=== PATIENT | male | born 1940 | race Caucasian/White ===

== ENCOUNTER 2019-01-08 10:50 | Emergency (ER) | payer MEDICARE, OTHER ==
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
[2019-01-08 12:04] LABS: ABS Basophils 0.1 10^3/ul (0-0.2); ABS Eosinophils 0.1 10^3/ul (0-0.6); ABS Lymphocytes 0.8 10^3/ul (1.0-4.8); ABS Monocytes 0.9 10^3/ul (0-0.8); ABS Neutrophils 8.7 10^3/ul (1.5-7.7); Eosinophil % 0.9 %; Hematocrit 47 % (42-52); Lymphocyte % 7.2 %; Mean Corpuscular HGB Conc 34 g/dL (31-36); Mean Corpuscular Hemoglobin 31 pg (27-31); Mean Corpuscular Volume 91 fL (80-94); Mean Platelet Volume 6.8 fL (7.4-10.4); Platelet Count 324 10^3/uL (150-450); Red Blood Count 5.13 10^6 /uL (4.18-5.48); Red Cell Distribution Width 14 % (10.5-15); White Blood Count 10.5 10^3/uL (3.5-10.8)
[2019-01-08] MEDS ORDERED: Tetan/Diph/Pertus SYR(Tdap)* 0.5 ML SYR(BOOSTRIX) use SYR IM ONE (12:12)
[2019-01-08 12:29] LABS: Albumin 4.3 g/dL (3.2-5.2); Albumin/Globulin Ratio 1.3 (1-3); Calcium 9.6 mg/dL (8.6-10.3); EGFR African American 80.5 (>60); EGFR Non-African American 66.5 (>60); Globulin 3.2 g/dL (2-4); Potassium 4.1 mmol/L (3.5-5.0); Total Bilirubin 0.6 mg/dL (0.2-1.0); Total Protein 7.5 g/dL (6.4-8.9)
[2019-01-08 12:46] VITALS: BP 143/91
== END 2019-01-08 12:45 | disposition home or self-care (01) ==
LOC: ED 10:50
DX: S00.93XA Contusion of unspecified part of head, initial encounter (principal); S05.90XA Unspecified injury of unspecified eye and orbit, initial encounter; H53.9 Unspecified visual disturbance; J44.9 Chronic obstructive pulmonary disease, unspecified; V53.5XXA Driver of pick-up truck or van injured in collision with car, pick-up truck or van in traffic accident, initial encounter; Y92.9 Unspecified place or not applicable; Z23 Encounter for immunization; K21.9 Gastro-esophageal reflux disease without esophagitis; M50.31 Other cervical disc degeneration, high cervical region; M50.322 Other cervical disc degeneration at C5-C6 level
CPT/HCPCS: 36415; 70450; 70486; 72125; 80053; 85025; 90471; 99282

== ENCOUNTER 2019-10-07 07:00 | Emergency (ER) | payer MEDICARE ==
--- NOTE | 2019-10-07 07:25 | ED ---
HPI Chest Pain - HPI Summary HPI Summary: Patient is an 79 y/o M presenting to the ED for a chief complaint of non- radiating midsternal chest pain that began on the morning of 10/07/19 at approximately 03:00. Patient is present with his . Patient reports productive cough with yellow phlegm for the last 10 days and nasal congestion. He states the cough is getting better, but feels SOB during coughing episodes. His has a similar cough. Patient denies fever, diaphoresis, nausea, abdominal pain, or neck pain. The chest pain is described as a tightness sensation across the anterior chest. The chest pain is still present. The chest pain worsens slightly with deep breaths and movement. No analgesia taken. No trauma or injury to the chest is noted. On 10:00 on 10/07/19, patient is due to have a prostate procedure with Dr. Geoffrey Huggins for prostate cancer. Patient last took antibiotics prescribed for the procedure on 10/06/19 last evening. Patient did not take his dose this morning. Typically, patient takes Xarelto for atrial fibrillation, but stopped taking this medication 3 days ago in preparation for the procedure. He received an influenza and pneumonia vaccination this season. Patient admits daily alcohol use, but denies tobacco use. Last cardiac stress test was 1 years ago with unremarkable findings. 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 Patients medication reviewed this visit. - History of Current Complaint Chief Complaint: EDChestPainROMI Time Seen by Provider: 10/07/19 07:18 Hx Obtained From: Patient Onset/Duration: Atraumatic, Still Present Timing: Constant Initial Severity: Moderate Current Severity: Moderate Pain Intensity: 4 Pain Scale Used: 0-10 Numeric Chest Pain Location: Mid Sternal Chest Pain Radiates: No Character: Tightness Aggravating Factor(s): Deep Breaths Alleviating Factor(s): Nothing Associated Signs and Symptoms: Positive: Chest Pain - Midsternal, Shortness of Breath, Cough - Productive with yellow phlegm, Productive Cough - With yellow phlegm. Negative: Fever, Diaphoresis, Nausea, Abdominal Pain, Other: - Negative neck pain - Allergy/Home Medications Allergies/Adverse Reactions: Allergies Allergy/AdvReac Type Severity Reaction Status Date / Time No Known Allergies Allergy Verified 09/09/19 12:12 Home Medications: Home Medications Calcium Carbonate [Calcium] 500 mg PO DAILY 10/07/19 [History Confirmed 10/07/19 ] Cholecalciferol TAB* [Vitamin D TAB*] 1,000 unit PO DAILY 10/07/19 [History Confirmed 10/07/19] PMH/Surg Hx/FS Hx/Imm Hx Previously Healthy: Yes Endocrine/Hematology History: Reports: Hx Anticoagulant Therapy Denies: Hx Diabetes, Hx Thyroid Disease Cardiovascular History: Reports: Hx Atrial Fibrillation Denies: Hx Congestive Heart Failure, Hx Hypercholesterolemia, Hx Hypertension , Hx Myocardial Infarction, Hx Pacemaker/ICD Respiratory History: Reports: Hx Chronic Obstructive Pulmonary Disease (COPD), Other Respiratory Problems/Disorders - 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 hernia repair april 2012 Infectious Disease History: No Infectious Disease History: Denies: Hx Hepatitis, Hx Human Immunodeficiency Virus (HIV), Traveled Outside the [place] in Last 30 Days - Family History Known Family History: Negative: Diabetes - Social History Occupation: Retired Lives: With Family Alcohol Use: Daily Hx Substance Use: No Substance Use Type: Reports: None Hx Tobacco Use: No Smoking Status (MU): Never Smoked Tobacco Have You Smoked in the Last Year: No Review of Systems Negative: Fever, Skin Diaphoresis Positive: Other - Positive nasal congestion Positive: Chest Pain - Midsternal Positive: Shortness Of Breath, Cough - Productive with yellow phlegm Negative: Abdominal Pain, Nausea Negative: Myalgia - Neck pain All Other Systems Reviewed And Are Negative: Yes Physical Exam - Summary Physical Exam Summary: Vital Signs Reviewed: Yes A+Ox3, no distress, speaking full, easy sentences Eyes: Conjunctiva Clear, DIANE. EOM intact and full ENT: Hearing grossly normal TM x 2 clear, turbinates inflammed and boggy, mmoist, uvula midline, no exudate, no erythema Neck: Positive: Supple Respiratory: Positive: No respiratory distress, No accessory muscle use, speaking full easy sentences, mild scattered expiratory wheeze + tenderness and reproducible pain with palpation anterior chest well at sternal border Cardiovascular: irregular rate nl s1, s2 no m/r CBT <2 sec abd soft + BS nt/nd no guarding, no distension Musculoskeletal Exam: ZABALA x 4 without difficulty Strength Intact, ROM Intact Neurological: Positive: Alert, + sensation throughout Psychological: Positive: Normal Response To examiner Skin: Positive: no rash, no ecchymosis Triage Information Reviewed: Yes Vital Signs On Initial Exam: Initial Vitals Temp Pulse Resp BP Pulse Ox 97.7 F 120 18 134/92 96 10/07/19 07:13 10/07/19 07:13 10/07/19 07:13 10/07/19 07:13 10/07/19 07:13 Vital Signs Reviewed: Yes Procedures - Sedation Patient Received Moderate/Deep Sedation with Procedure: No Diagnostics - Vital Signs Vital Signs Temp Pulse Resp BP Pulse Ox 10/07/19 07:13 97.7 F 120 18 134/92 96 - Laboratory Result Diagrams: 10/07/19 07:47 10/07/19 07:47 Lab Statement: Any lab studies that have been ordered have been reviewed, and results considered in the medical decision making process. - Radiology Chest X-ray Radiology Interpretation Completed By: Radiologist Summary of Radiographic Findings: Chest X-ray IMPRESSION: STABLE CALCIFIED PLEURAL PLAQUES. NO ACTIVE CARDIOPULMONARY DISEASE. Reviewed by Dr. Casillas. - CT Chest/Thorax CTA CT Interpretation Completed By: Radiologist Summary of CT Findings: Chest/Thorax CTA IMPRESSION: 1. NO PULMONARY ARTERIAL FILLING DEFECT TO SUGGEST PULMONARY EMBOLISM. 2. STABLE PLEURAL AND PERICARDIAL CALCIFICATION. 3. EMPHYSEMA. Reviewed by Dr. Casillas. - EKG 07:06 Cardiac Rate: Other Rate - 110 BPM EKG Rhythm: Atrial Fibrillation ST Segment: Normal Ectopy: None Summary of EKG Findings: EKG at 07:06 shows atrial fibrillation with 110 BPM, slight ST depressions in V3-V6. Reviewed and interpreted by Dr. Casillas. Re-Evaluation - Re-Evaluation First Eval Re-Evaluation Time: 08:53 Change: Improved Comment: At 08:53, patients lungs are improved, wheezing is resolved. Patient states the pain is still present, but improved. I will order a CTA to look for a PE and a repeat troponin at 09:30. I will order breakfast. Patients son is present. Second Eval Re-Evaluation Time: 09:00 Change: Unchanged Comment: At 09:00, I updated the patient on imaging results. Third Eval Re-Evaluation Time: 09:49 Change: Improved Comment: At 09:49, patient is feeling better. I will wait for a second troponin before discharge. Fourth Eval Re-Evaluation Time: 10:44 Change: Unchanged Comment: At 10:44, there are no interactions with tiarra Rendon per Jorge. Chest Pain Course/Dx - Course Course Of Treatment: Patient presents to urgent care stating he will go to 3:00 in the morning with change pain across his anterior chest. Patient states pain is worse with coughing and movement. Patient denies feeling short of breath. Patient with a recent head cold that settled his chest. Patient without any other symptoms. Patient did not take anything for the pain. Patient with a history of A. fib and is typically on Zaroxolyn but stopped it because he scheduled to have a urology procedure this morning. Patient again by first thing preparation for this. Patient does not smoke patient. Patient has COPD but on no meds. On exam vital signs show slightly elevated heart rate. Patient well-appearing with good sats. Patient does have diffuse expiratory wheezes and has reproducible discomfort along the anterior chest pain with direct palpation. No crepitus. We'll do labs including influenza. EKG reviewed non-concerning A. fib. Will check x-ray, give Xopenex, labs including influenza and troponin. The patient Tylenol for pain. Patient spells comfortable with the plan. Patient gave permission to contact Dr. Anderson's office and let the staff know he is undereval in the ED - Diagnoses Provider Diagnoses: Chest wall pain, Bronchitis - Provider Notifications Discussed Care Of Patient With: Geoffrey Huggins - At 08:55, Dr. Geoffrey Huggins was notified that the patient is in the ED. Time Discussed With Above Provider: 08:55 Discharge ED - Sign-Out/Discharge Documenting (check all that apply): Patient Departure - Discharge - Discharge Plan Condition: Stable Disposition: HOME Prescriptions: Albuterol HFA INHALER* [Ventolin HFA Inhaler*] 2 puff INH Q4H PRN #1 mdi PRN Reason: wheeze DOXYcycline CAP(*) [DOXYcycline 100MG CAP(*)] 100 mg PO BID #14 cap Inhaler, Assist Devices [Aerochamber Mv] 1 each PO Q4HR #1 spacer Patient Education Materials: Acute Bronchitis (ED), Chest Wall Pain (ED) Referrals: Marisa Eli PA [Primary Care Provider] - Additional Instructions: The doctor that evaluated you today thinks that the pain in your chest is related to muscles in your chest from coughing. Your imaging studies today do not show any blood clots in your lungs, problems related to your pleural effusion, or pneumonia. As discussed, your white blood cell count was slightly elevated today. As you recently had a head cold that settled in your chest, the doctor thinks you should take a course of antibiotics because your symptoms have been lingering for 10 days. The doctor evaluated you recommends the following: - Take antibiotics exactly as prescribed until gone - okay to take Tylenol every 6 hours as needed for pain - Okay to apply warm heat to your chest wall for discomfort - Use your albuterol puffer - 2 puffs every 4 hours for the next 2 days - then as needed - Stay well hydrated - avoid excess caffeine and all alcohol - eat regular, healthy meals - humidify the air in the room where you sleep - boil water, run a hot steam shower, vaporizer, cups of water by heat register - okay to take over the counter decongestant and cough medication - These infections are spread by secretions - do NOT share eating or drinking utensils - clean items you share with other people such as cell phones, computer mouse, TV remote, computer tablets,etc.. Once you have been antibiotics for 2 days, change your toothbrush and your pillowcase. -Contact your doctor today to arrange a follow-up appointment this week. Call your doctor, return here or go to the emergency department with any questions or concerns Contact Dr. Huggins's office to discuss your prostate procedure and your to discuss your anticoagulation medication - Billing Disposition and Condition Condition: STABLE Disposition: Home - Attestation Statements Document Initiated by Scribe: Yes Documenting Scribe: Izzy Mccall Provider For Whom Scribe is Documenting (Include Credential): Brandee Casillas MD Scribe Attestation: I, Izzy Mccall, scribed for Brandee Casillas MD on 10/07/19 at 1046. Scribe Documentation Reviewed: Yes Provider Attestation: The documentation as recorded by the scribe, Izzy Mccall accurately reflects the service I personally performed and the decisions made by me, Brandee Casillas MD Status of Scribe Document: Viewed
[2019-10-07] MEDS ORDERED: Acetaminophen TAB* 325 MG PO ONE (07:37)
[2019-10-07] MEDS ORDERED: Levalbuterol 1.25MG/0.5ML NEB INH ONE (07:40)
[2019-10-07] MEDS ORDERED: NS 0.9% 1000 ML** 1,000 ML IV ONE (07:41)
[2019-10-07 08:05] LABS: ABS Lymphocytes 0.8 10^3/ul (1.0-4.8); Eosinophil % 0.1 %; Hematocrit 48 % (42-52); Hemoglobin 16.9 g/dL (14.0-18.0); Lymphocyte % 5.2 %; Mean Corpuscular HGB Conc 36 g/dL (31-36); Mean Corpuscular Hemoglobin 33 pg (27-31); Mean Corpuscular Volume 93 fL (80-94); Mean Platelet Volume 6.8 fL (7.4-10.4); Platelet Count 471 10^3/uL (150-450); Red Blood Count 5.13 10^6 /uL (4.18-5.48); Red Cell Distribution Width 14 % (10-15)
[2019-10-07 08:10] LABS: INR 1.11 (0.82-1.09)
[2019-10-07 08:11] LABS: Calcium 8.9 mg/dL (8.6-10.3); Magnesium 1.8 mg/dL (1.9-2.7); Potassium 3.6 mmol/L (3.5-5.0); Total Bilirubin 0.8 mg/dL (0.2-1.0)
[2019-10-07 08:17] LABS: Albumin/Globulin Ratio 1.1 (1-3); EGFR African American 86.8 (>60); EGFR Non-African American 71.7 (>60); Globulin 3.5 g/dL (2-4); Total Protein 7.5 g/dL (6.4-8.9)
[2019-10-07 08:19] LABS: Troponin I 0.01 ng/mL (<0.03)
[2019-10-07 08:35] LABS: Influenza A Molecular Negative (Negative); Influenza B Molecular Negative (Negative)
[2019-10-07] MEDS ORDERED: Iohexol 350* (CONTRAST) 500 ML MDV IV ONE (09:00)
[2019-10-07 09:37] LABS: Urine Appearance Clear; Urine Bilirubin Negative (Negative); Urine Blood 2+ (Negative); Urine Color Yellow; Urine Glucose Negative (Negative); Urine Ketones Negative (Negative); Urine Nitrite Negative (Negative); Urine Protein Negative (Negative); Urine Specific Gravity 1.015 (1.010-1.030); Urine Urobilinogen Negative (Negative)
[2019-10-07 09:47] LABS: Urine Bacteria Absent (Absent); Urine Red Blood Cell 2+(6-10/hpf) (Absent); Urine White Blood Cell Trace(0-5/hpf) (Absent)
[2019-10-07 10:59] VITALS: BP 122/78
== END 2019-10-07 10:57 | disposition home or self-care (01) ==
LOC: ED 07:00
DX: J40 Bronchitis, not specified as acute or chronic (principal); I48.91 Unspecified atrial fibrillation; J44.9 Chronic obstructive pulmonary disease, unspecified; C61 Malignant neoplasm of prostate; Z79.01 Long term (current) use of anticoagulants
CPT/HCPCS: 36415; 71046; 71275; 80053; 81003; 81015; 83605; 83735; 84484; 85025; 85379; 85610; 87040; 87086; 93005; 96360; 96361; 99283; A9270-GY; Q9967

== ENCOUNTER 2020-04-06 21:53 | Inpatient (IN) ==
[2020-04-06] MEDS ORDERED: Magnesium Sulfate 2 gm BAG 2 GM/50 ML BAG IVPB ONE (22:08)
[2020-04-06] MEDS ORDERED: NS 0.9% 1000 ml BAG 1,000 ML IV ONE (22:08)
[2020-04-06 23:18] LABS: ABS Lymphocytes 0.4 10^3/ul (1.0-4.8); ABS Monocytes 0.4 10^3/ul (0-0.8); ABS Neutrophils 4.6 10^3/ul (1.5-7.7); Eosinophil % 0.1 %; Hematocrit 28 % (42-52); Hemoglobin 9.8 g/dL (14.0-18.0); Lymphocyte % 7.3 %; Mean Corpuscular HGB Conc 35 g/dL (31-36); Mean Corpuscular Hemoglobin 32 pg (27-31); Mean Corpuscular Volume 91 fL (80-94); Mean Platelet Volume 6.4 fL (7.4-10.4); Nucleated Red Blood Cells % 0.1; Platelet Count 518 10^3/uL (150-450); Red Blood Count 3.04 10^6 /uL (4.18-5.48); Red Cell Distribution Width 15 % (10-15); White Blood Count 5.4 10^3/uL (3.5-10.8)
[2020-04-06 23:37] LABS: Albumin 1.9 g/dL (3.2-5.2); Albumin/Globulin Ratio 0.7 (1-3); BUN/Creatinine Ratio 21.3 (8-20); Calcium 7.3 mg/dL (8.6-10.3); EGFR Non-African American 81.8 (>60); Globulin 2.9 g/dL (2-4); Magnesium 1.6 mg/dL (1.9-2.7); Potassium 3.1 mmol/L (3.5-5.0); Total Bilirubin 0.5 mg/dL (0.2-1.0); Total Protein 4.8 g/dL (6.4-8.9)
[2020-04-06 23:39] LABS: Troponin I 0.02 ng/mL (<0.03)
[2020-04-07 00:19] LABS: TSH Ultra Thyroid Stim Horm 1.26 mcIU/mL (0.34-5.60)
[2020-04-07] MEDS ORDERED: Iohexol 300 (CONTRAST) 10 ML SDV IV ONE (00:48)
[2020-04-07 03:07] LABS: Urine Appearance Clear; Urine Bilirubin Negative (Negative); Urine Blood Negative (Negative); Urine Color Straw; Urine Glucose Negative (Negative); Urine Ketones Negative (Negative); Urine Nitrite Negative (Negative); Urine Protein Negative (Negative); Urine Specific Gravity 1.014 (1.010-1.030); Urine Urobilinogen Negative (Negative)
[2020-04-07] MEDS ORDERED: NS 0.9% 1000 ml BAG 1,000 ML IV ONE ×2 (04:05→10:01)
[2020-04-07] MEDS ORDERED: Ondansetron 4 mg VIAL 2 MG/ML 2 ml VIAL IV PRN (05:01)
[2020-04-07] MEDS ORDERED: NS 0.9% 1000 ml BAG 1,000 ML IV SCH ×2 (05:15)
[2020-04-07] MEDS ORDERED: Thiamine 100 MG/ML 2 ml VIAL 100 MG, Folic Acid 1 MG, Multiple Vitamin IV ADULT 10 ML i... IV ONE (05:30)
[2020-04-07] MEDS ORDERED: Diphenoxylat/Atrop 2.5-0.025mg TAB PO PRN (05:32)
[2020-04-07] MEDS: KCL 20 MEQ/100 ML IVPREMIX 20 MEQ/100 ML BAG IV SCH ×3 (07:33→15:17)
[2020-04-07] MEDS ORDERED: Albuterol/Ipratropium NEB.SOL (2.5/0.5 MG) 3 ML NEB.SOLN INH PRN (09:05)
[2020-04-07] MEDS: Mometasone/Formoter 100/5 MDI INH SCH ×2 (10:29→19:31)
[2020-04-07] MEDS ORDERED: NS 0.9% w/ 20 Meq KCL 1000 ml 1,000 ML IV SCH (11:00)
[2020-04-07 12:42] LABS: BUN/Creatinine Ratio 17.4 (8-20); Blood Urea Nitrogen 12 mg/dL (6-24); CO2 Carbon Dioxide 27 mmol/L (22-32); Chloride 105 mmol/L (101-111); EGFR African American 132.8 (>60); EGFR Non-African American 109.8 (>60); Glucose 106 mg/dL (70-100); Magnesium 1.6 mg/dL (1.9-2.7); Sodium 138 mmol/L (135-145)
[2020-04-07 12:50] LABS: Anion Gap 6 mmol/L (2-11); Calcium 6.4 mg/dL (8.6-10.3); Potassium 2.7 mmol/L (3.5-5.0)
[2020-04-07] MEDS ORDERED: KCL 20 MEQ/100 ML IVPREMIX 20 MEQ/100 ML BAG IV ONE (13:00)
[2020-04-07] MEDS ORDERED: Magnesium Sulfate IV 3 GM in NS 0.9% 100 ml BAG 100 ML IVPB ONE (13:00)
[2020-04-07] MEDS: Potassium Chloride LIQUID 20 MEQ/15 ML LIQUID PO SCH ×2 (13:07→16:15)
[2020-04-07] MEDS: Nystatin SUSPENSION 100,000 UNITS/ML UDC PO SCH ×2 (16:15→20:12)
[2020-04-07 18:41] LABS: C Reactive Protein 107.04 mg/L (<8.01)
[2020-04-07 21:49] LABS: Total Iron Binding Capacity 105 mcg/dL (250-450); Transferrin < 75 mg/dL (203-362)
[2020-04-07 21:53] LABS: % Iron Saturation 19 % (15-55); Iron < 20 ug/dL (50-212); Unsaturated Iron Binding < 90 ug/dL
[2020-04-07 22:11] LABS: Ferritin 761.1 ng/mL (24-336)
[2020-04-07 22:14] LABS: Folate 13.81 ng/mL (>3.99)
[2020-04-07 22:15] LABS: Vitamin B12 > 1450 pg/mL (180-914)
[2020-04-08 05:35] LABS: ABS Lymphocytes 0.4 10^3/ul (1.0-4.8); ABS Monocytes 0.3 10^3/ul (0-0.8); ABS Neutrophils 4.8 10^3/ul (1.5-7.7); Eosinophil % 0.4 %; Hematocrit 30 % (42-52); Hemoglobin 10.2 g/dL (14.0-18.0); Mean Corpuscular HGB Conc 35 g/dL (31-36); Mean Corpuscular Hemoglobin 32 pg (27-31); Mean Corpuscular Volume 92 fL (80-94); Mean Platelet Volume 6.7 fL (7.4-10.4); Nucleated Red Blood Cells % 0.1; Platelet Count 486 10^3/uL (150-450); Red Blood Count 3.21 10^6 /uL (4.18-5.48); Red Cell Distribution Width 15 % (10-15); White Blood Count 5.6 10^3/uL (3.5-10.8)
[2020-04-08 05:53] LABS: Calcium 6.5 mg/dL (8.6-10.3); Magnesium 1.9 mg/dL (1.9-2.7); Potassium 3.3 mmol/L (3.5-5.0)
[2020-04-08 05:59] LABS: BUN/Creatinine Ratio 11.9 (8-20); EGFR African American 137.4 (>60); EGFR Non-African American 113.6 (>60)
[2020-04-08] MEDS: Mometasone/Formoter 100/5 MDI INH SCH ×2 (08:32→20:49)
[2020-04-08] MEDS: Nystatin SUSPENSION 100,000 UNITS/ML UDC PO SCH ×4 (09:33→20:15)
[2020-04-08] MEDS: KCL 20 MEQ/100 ML IVPREMIX 20 MEQ/100 ML BAG IV SCH ×2 (10:38→12:31)
[2020-04-08 16:59] LABS: BUN/Creatinine Ratio 11.4 (8-20); Calcium 6.6 mg/dL (8.6-10.3); EGFR African American 130.6 (>60); Magnesium 1.8 mg/dL (1.9-2.7); Potassium 3.7 mmol/L (3.5-5.0)
[2020-04-08] MEDS ORDERED: Magnesium Sulfate 2 gm BAG 2 GM/50 ML BAG IVPB ONE (17:59)
[2020-04-09 06:40] LABS: ABS Lymphocytes 0.5 10^3/ul (1.0-4.8); ABS Monocytes 0.4 10^3/ul (0-0.8); ABS Neutrophils 5.4 10^3/ul (1.5-7.7); Eosinophil % 0.3 %; Hematocrit 28 % (42-52); Hemoglobin 9.8 g/dL (14.0-18.0); Lymphocyte % 7.5 %; Mean Corpuscular HGB Conc 35 g/dL (31-36); Mean Corpuscular Hemoglobin 32 pg (27-31); Mean Corpuscular Volume 92 fL (80-94); Nucleated Red Blood Cells % 0.1; Platelet Count 324 10^3/uL (150-450); Red Blood Count 3.06 10^6 /uL (4.18-5.48); Red Cell Distribution Width 15 % (10-15); White Blood Count 6.2 10^3/uL (3.5-10.8)
[2020-04-09 06:48] LABS: BUN/Creatinine Ratio 11.9 (8-20); EGFR African American 137.4 (>60); EGFR Non-African American 113.6 (>60); Magnesium 1.9 mg/dL (1.9-2.7); Potassium 3.1 mmol/L (3.5-5.0)
[2020-04-09 06:58] LABS: Calcium 6.4 mg/dL (8.6-10.3)
[2020-04-09] MEDS ORDERED: Calcium Gluconate 2 GM in NS 0.9% 100 ml BAG 100 ML IV ONE (08:00)
[2020-04-09] MEDS: Nystatin SUSPENSION 100,000 UNITS/ML UDC PO SCH ×4 (08:18→20:52)
[2020-04-09] MEDS: KCL 20 MEQ/100 ML IVPREMIX 20 MEQ/100 ML BAG IV SCH ×2 (08:51→14:01)
[2020-04-09 10:39] LABS: Vitamin D Total 25(OH) 7.8 ng/mL (20-50)
[2020-04-09] MEDS: Mometasone/Formoter 100/5 MDI INH SCH ×2 (10:55→20:52)
[2020-04-09] MEDS: Potassium Chlor 20 meq TAB.ER PO SCH ×2 (14:51→16:55)
[2020-04-09 17:20] LABS: BUN/Creatinine Ratio 14.9 (8-20); Calcium 6.6 mg/dL (8.6-10.3); EGFR African American 122.5 (>60); EGFR Non-African American 101.3 (>60); Magnesium 1.8 mg/dL (1.9-2.7); Potassium 3.3 mmol/L (3.5-5.0)
[2020-04-10] MEDS ORDERED: Diphenoxylat/Atrop 2.5-0.025mg TAB PO PRN (06:00)
[2020-04-10 07:03] LABS: ABS Lymphocytes 0.4 10^3/ul (1.0-4.8); ABS Monocytes 0.5 10^3/ul (0-0.8); ABS Neutrophils 4.9 10^3/ul (1.5-7.7); Hematocrit 29 % (42-52); Hemoglobin 10.1 g/dL (14.0-18.0); Lymphocyte % 7.2 %; Mean Corpuscular HGB Conc 35 g/dL (31-36); Mean Corpuscular Hemoglobin 33 pg (27-31); Mean Corpuscular Volume 92 fL (80-94); Mean Platelet Volume 7.1 fL (7.4-10.4); Nucleated Red Blood Cells % 0.1; Platelet Count 419 10^3/uL (150-450); Red Cell Distribution Width 15 % (10-15); White Blood Count 5.8 10^3/uL (3.5-10.8)
[2020-04-10 07:10] LABS: Albumin 1.5 g/dL (3.2-5.2); Albumin/Globulin Ratio 0.6 (1-3); BUN/Creatinine Ratio 16.7 (8-20); Calcium 6.7 mg/dL (8.6-10.3); EGFR African American 126.5 (>60); EGFR Non-African American 104.5 (>60); Globulin 2.7 g/dL (2-4); Magnesium 1.8 mg/dL (1.9-2.7); Potassium 3.7 mmol/L (3.5-5.0); Total Bilirubin 0.4 mg/dL (0.2-1.0); Total Protein 4.2 g/dL (6.4-8.9)
[2020-04-10] MEDS: Mometasone/Formoter 100/5 MDI INH SCH ×2 (07:40→19:57)
[2020-04-10] MEDS ORDERED: Calcium Carb (TUMS) 500 mg CHEW TAB PO SCH (09:00)
[2020-04-10] MEDS: Nystatin SUSPENSION 100,000 UNITS/ML UDC PO SCH ×4 (09:10→20:17)
[2020-04-10] MEDS: Potassium Chloride LIQUID 20 MEQ/15 ML LIQUID PO SCH (09:10)
[2020-04-10] MEDS: Calcium Carb (TUMS) 500 mg CHEW TAB PO SCH ×2 (09:14→20:17)
[2020-04-10] MEDS ORDERED: Magnesium Sulfate IV 1GM/100ML 1 GM/100 ML BAG IV ONE (09:25)
[2020-04-10] MEDS ORDERED: Furosemide 20 mg/2 ml IV VIAL IV SLOW PU ONE (12:52)
[2020-04-11 01:39] LABS: Adenovirus F40/41 Negative (Negative); Astrovirus Negative (Negative); Cryptosporidium species Negative (Negative); Cyclospora cayetanensis Negative (Negative); Entamoeba histolytica Negative (Negative); Enteroaggregative E.coli(EAEC) Negative (Negative); Enteropathogenic Ecoli(EPEC) Positive (Negative); Enterotoxigenic Ecoli(ETEC) Negative (Negative); Norovirus GI/GII Negative (Negative); Plesiomonas shigelloides Negative (Negative); Salmonella species Negative (Negative); Sapovirus Negative (Negative); Shiga toxin producing E. coli Negative (Negative); Shigella/Enteroinvasive E.coli Negative (Negative); Specimen Source STOOL; Vibrio cholerae Negative (Negative); Yersinia species Negative (Negative)
[2020-04-11 06:52] LABS: Calcium 6.7 mg/dL (8.6-10.3); Magnesium 1.7 mg/dL (1.9-2.7); Potassium 3.5 mmol/L (3.5-5.0)
[2020-04-11 06:57] LABS: BUN/Creatinine Ratio 16.7 (8-20); EGFR African American 126.5 (>60); EGFR Non-African American 104.5 (>60)
[2020-04-11] MEDS: Mometasone/Formoter 100/5 MDI INH SCH ×2 (08:31→19:16)
[2020-04-11] MEDS ORDERED: Magnesium Sulfate 2 gm BAG 2 GM/50 ML BAG IVPB ONE (08:49)
[2020-04-11] MEDS: Potassium Chloride LIQUID 20 MEQ/15 ML LIQUID PO SCH (09:15)
[2020-04-11] MEDS: Calcium Carb (TUMS) 500 mg CHEW TAB PO SCH ×2 (09:17→23:22)
[2020-04-11] MEDS: Nystatin SUSPENSION 100,000 UNITS/ML UDC PO SCH ×4 (09:19→23:21)
[2020-04-11] MEDS ORDERED: Potassium Chloride LIQUID 20 MEQ/15 ML LIQUID PO ONE (17:13)
[2020-04-12 05:50] LABS: BUN/Creatinine Ratio 17.3 (8-20); Calcium 6.8 mg/dL (8.6-10.3); EGFR African American 120.6 (>60); EGFR Non-African American 99.7 (>60); Magnesium 1.9 mg/dL (1.9-2.7); Potassium 3.8 mmol/L (3.5-5.0)
[2020-04-12] MEDS: Mometasone/Formoter 100/5 MDI INH SCH ×2 (08:13→19:14)
[2020-04-12 09:02] LABS: Albumin 1.7 g/dL (3.2-5.2); Total Protein 4.4 g/dL (6.4-8.9)
[2020-04-12] MEDS: Nystatin SUSPENSION 100,000 UNITS/ML UDC PO SCH ×4 (09:54→22:07)
[2020-04-12] MEDS: Calcium Carb (TUMS) 500 mg CHEW TAB PO SCH ×2 (09:54→22:08)
[2020-04-12] MEDS: Potassium Chloride LIQUID 20 MEQ/15 ML LIQUID PO SCH (09:54)
[2020-04-12] MEDS ORDERED: Furosemide 40 mg/4 ml IV VIAL IV SLOW PU ONE (12:18)
[2020-04-13 04:45] LABS: CMV DNA DETECT/QT, P Undetected IU/mL (Undetected)
[2020-04-13 07:28] LABS: BUN/Creatinine Ratio 13.7 (8-20); Calcium 6.7 mg/dL (8.6-10.3); EGFR African American 124.5 (>60); EGFR Non-African American 102.9 (>60); Magnesium 1.7 mg/dL (1.9-2.7); Potassium 3.4 mmol/L (3.5-5.0)
[2020-04-13] MEDS: Nystatin SUSPENSION 100,000 UNITS/ML UDC PO SCH ×4 (07:55→21:54)
[2020-04-13] MEDS: Potassium Chloride LIQUID 20 MEQ/15 ML LIQUID PO SCH (07:56)
[2020-04-13] MEDS: Calcium Carb (TUMS) 500 mg CHEW TAB PO SCH ×2 (07:57→21:54)
[2020-04-13] MEDS: Mometasone/Formoter 100/5 MDI INH SCH ×2 (08:40→20:18)
[2020-04-13] MEDS ORDERED: Magnesium Sulfate 2 gm BAG 2 GM/50 ML BAG IVPB ONE (09:21)
[2020-04-13] MEDS ORDERED: Potassium Chloride LIQUID 20 MEQ/15 ML LIQUID PO ONE (13:00)
[2020-04-13 15:52] LABS: BUN/Creatinine Ratio 13.8 (8-20); EGFR Non-African American 92.5 (>60); Magnesium 2.3 mg/dL (1.9-2.7); Potassium 4.8 mmol/L (3.5-5.0)
[2020-04-14 07:43] LABS: ABS Eosinophils 0.1 10^3/ul (0-0.6); ABS Lymphocytes 0.5 10^3/ul (1.0-4.8); ABS Monocytes 0.2 10^3/ul (0-0.8); ABS Neutrophils 3.3 10^3/ul (1.5-7.7); Eosinophil % 3.4 %; Hematocrit 28 % (42-52); Hemoglobin 9.7 g/dL (14.0-18.0); Lymphocyte % 12.6 %; Mean Corpuscular HGB Conc 35 g/dL (31-36); Mean Corpuscular Hemoglobin 32 pg (27-31); Mean Corpuscular Volume 92 fL (80-94); Nucleated Red Blood Cells % 0.1; Platelet Count 460 10^3/uL (150-450); Red Blood Count 3.01 10^6 /uL (4.18-5.48); Red Cell Distribution Width 15 % (10-15); White Blood Count 4.2 10^3/uL (3.5-10.8)
[2020-04-14 08:09] LABS: Calcium 6.9 mg/dL (8.6-10.3); Magnesium 1.9 mg/dL (1.9-2.7); Potassium 3.6 mmol/L (3.5-5.0)
[2020-04-14 08:15] LABS: BUN/Creatinine Ratio 13.8 (8-20); EGFR African American 142.3 (>60); EGFR Non-African American 117.6 (>60)
[2020-04-14] MEDS: Nystatin SUSPENSION 100,000 UNITS/ML UDC PO SCH (08:21)
[2020-04-14] MEDS: Calcium Carb (TUMS) 500 mg CHEW TAB PO SCH (08:21)
[2020-04-14] MEDS: Potassium Chloride LIQUID 20 MEQ/15 ML LIQUID PO SCH (08:22)
[2020-04-14] MEDS: Mometasone/Formoter 100/5 MDI INH SCH (08:24)
[2020-04-14 11:17] VITALS: BP 101/59
== END 2020-04-14 10:30 | DRG 372 ==
LOC: ED 21:53 → MED 04-07 05:01 → MEDTELE 04-08 12:54
PROVIDERS: ADMIT Nurse Practitioner; ATTEND Internal Medicine

== ENCOUNTER 2020-05-17 12:55 | Inpatient (IN) ==
[2020-05-17] MEDS ORDERED: Diltiazem IV push/loading dose 5 MG/ML 5 ML vial (25 mg) IV SLOW PU ONE (13:25)
[2020-05-17] MEDS ORDERED: NS 0.9% 1000 ml BAG 1,000 ML IV ONE (13:25)
[2020-05-17 13:35] LABS: ABS Lymphocytes 0.3 10^3/ul (1.0-4.8); ABS Monocytes 0.3 10^3/ul (0-0.8); ABS Neutrophils 14.4 10^3/ul (1.5-7.7); Hematocrit 33 % (42-52); Hemoglobin 10.6 g/dL (14.0-18.0); Lymphocyte % 1.8 %; Mean Corpuscular HGB Conc 32 g/dL (31-36); Mean Corpuscular Hemoglobin 32 pg (27-31); Mean Corpuscular Volume 99 fL (80-94); Mean Platelet Volume 6.3 fL (7.4-10.4); Platelet Count 444 10^3/uL (150-450); Red Blood Count 3.37 10^6 /uL (4.18-5.48); Red Cell Distribution Width 17 % (10-15)
[2020-05-17 13:44] LABS: INR 1.3 (0.82-1.09)
[2020-05-17] MEDS ORDERED: Diltiazem IV BAG D5W Premix 125 MG/125 ML BAG IV SCH ×3 (14:00→20:00)
[2020-05-17 14:01] LABS: Troponin I 0.03 ng/mL (<0.03)
[2020-05-17 14:20] LABS: ALT 19 U/L (7-52); AST 16 U/L (13-39); Albumin 3.2 g/dL (3.2-5.2); Albumin/Globulin Ratio 1.1 (1-3); Alkaline Phosphatase 62 U/L (34-104); Anion Gap 9 mmol/L (2-11); BUN/Creatinine Ratio 21.8 (8-20); Blood Urea Nitrogen 22 mg/dL (6-24); CO2 Carbon Dioxide 27 mmol/L (22-32); Calcium 8.1 mg/dL (8.6-10.3); Chloride 101 mmol/L (101-111); EGFR African American 85.6 (>60); EGFR Non-African American 70.7 (>60); Globulin 2.8 g/dL (2-4); Glucose 223 mg/dL (70-100); Magnesium 1.7 mg/dL (1.9-2.7); Potassium 4.1 mmol/L (3.5-5.0); Sodium 137 mmol/L (135-145)
[2020-05-17 14:27] LABS: TSH Ultra Thyroid Stim Horm 1.95 mcIU/mL (0.34-5.60)
[2020-05-17] MEDS ORDERED: NS 0.9% 1000 ml BAG 1,000 ML IV SCH (16:45)
[2020-05-17 18:24] LABS: Troponin I 0.03 ng/mL (<0.03)
[2020-05-17] MEDS: Mometasone/Formoter 100/5 MDI INH SCH (21:05)
[2020-05-18] MEDS ORDERED: Diltiazem IV BAG D5W Premix 125 MG/125 ML BAG IV SCH (05:56)
[2020-05-18 06:45] LABS: ABS Basophils 0.1 10^3/ul (0-0.2); ABS Eosinophils 0.1 10^3/ul (0-0.6); ABS Lymphocytes 0.8 10^3/ul (1.0-4.8); ABS Monocytes 0.6 10^3/ul (0-0.8); ABS Neutrophils 5.6 10^3/ul (1.5-7.7); Eosinophil % 0.9 %; Hematocrit 28 % (42-52); Hemoglobin 9.8 g/dL (14.0-18.0); Lymphocyte % 11.7 %; Mean Corpuscular HGB Conc 35 g/dL (31-36); Mean Corpuscular Hemoglobin 34 pg (27-31); Mean Corpuscular Volume 97 fL (80-94); Mean Platelet Volume 6.1 fL (7.4-10.4); Platelet Count 340 10^3/uL (150-450); Red Blood Count 2.91 10^6 /uL (4.18-5.48); Red Cell Distribution Width 17 % (10-15); White Blood Count 7.2 10^3/uL (3.5-10.8)
[2020-05-18 07:02] LABS: BUN/Creatinine Ratio 22.8 (8-20); Calcium 7.5 mg/dL (8.6-10.3); EGFR African American 113.6 (>60); EGFR Non-African American 93.9 (>60); Potassium 3.7 mmol/L (3.5-5.0)
[2020-05-18] MEDS: Mometasone/Formoter 100/5 MDI INH SCH (09:20)
[2020-05-18] MEDS ORDERED: Diltiazem IV push/loading dose 5 MG/ML 5 ML vial (25 mg) IV SLOW PU ONE (11:13)
[2020-05-18] MEDS ORDERED: Diltiazem IV push/loading dose 5 MG/ML 5 ML vial (25 mg) IV SLOW PU PRN (11:14)
[2020-05-18 13:10] VITALS: BP 98/66
== END 2020-05-18 16:35 | disposition home or self-care (01) | DRG 309 ==
LOC: ED 12:55 → MEDTELE 16:39
PROVIDERS: ADMIT Internal Medicine; ATTEND Internal Medicine

== ENCOUNTER 2021-08-17 16:52 | Inpatient (IN) ==
[2021-08-17] MEDS ORDERED: Lactated Ringers 1000 ml BAG 1,000 ML IV ONE (17:47)
[2021-08-17] MEDS ORDERED: PEG 3000 GI LAVAGE 1 GALLON PO ONE ×2 (17:51→18:45)
[2021-08-17 18:15] LABS: ABS Lymphocytes 0.9 10^3/ul (1.0-4.8); ABS Monocytes 0.8 10^3/ul (0-0.8); ABS Neutrophils 5.7 10^3/ul (1.5-7.7); Eosinophil % 0.6 %; Hematocrit 37 % (42-52); Hemoglobin 12.6 g/dL (14.0-18.0); Lymphocyte % 11.7 %; Mean Corpuscular HGB Conc 34 g/dL (31-36); Mean Corpuscular Hemoglobin 31 pg (27-31); Mean Corpuscular Volume 90 fL (80-94); Mean Platelet Volume 6.7 fL (7.4-10.4); Platelet Count 354 10^3/uL (150-450); Red Blood Count 4.08 10^6 /uL (4.18-5.48); Red Cell Distribution Width 14 % (10-15); White Blood Count 7.4 10^3/uL (3.5-10.8)
[2021-08-17 18:31] LABS: Albumin 4.3 g/dL (3.2-5.2); Albumin/Globulin Ratio 1.5 (1-3); C Reactive Protein 4.19 mg/L (<8.01); Calcium 9.3 mg/dL (8.6-10.3); Globulin 2.9 g/dL (2-4); Potassium 2.8 mmol/L (3.5-5.0); Total Bilirubin 0.4 mg/dL (0.2-1.0); Total Protein 7.2 g/dL (6.4-8.9); eGFR CKD-EPI 68.9 (>60)
[2021-08-17] MEDS ORDERED: Potassium Chloride LIQUID 20 MEQ/15 ML LIQUID PO ONE (18:40)
[2021-08-17] MEDS ORDERED: NS 0.9% 1000 ml BAG 1,000 ML IV SCH (18:45)
[2021-08-17] MEDS ORDERED: Ondansetron 4 mg VIAL 2 MG/ML 2 ml VIAL IV PRN (18:50)
[2021-08-17] MEDS ORDERED: KCL 20 MEQ/100 ML IVPREMIX 20 MEQ/100 ML BAG ONE (18:51)
[2021-08-17] MEDS: KCL 20 MEQ/100 ML IVPREMIX 20 MEQ/100 ML BAG IV SCH ×2 (18:53→22:56)
[2021-08-17] MEDS ORDERED: NS 0.9% w/ 40 Meq KCL 1000 ML 1,000 ML IV SCH (19:00)
[2021-08-17 19:19] LABS: Urine Appearance Clear; Urine Bilirubin Negative (Negative); Urine Blood 1+ (Negative); Urine Color Straw; Urine Glucose Negative (Negative); Urine Ketones Negative (Negative); Urine Nitrite Negative (Negative); Urine Protein Negative (Negative); Urine Specific Gravity 1.017 (1.002-1.030); Urine Urobilinogen Negative (Negative)
[2021-08-17 19:20] LABS: Urine Bacteria Absent (Absent); Urine Red Blood Cell Trace(0-2/hpf) (Absent); Urine Squamous Epithelial Cell Present (Absent); Urine White Blood Cell 2+(11-20/hpf) (Absent)
[2021-08-17] MEDS ORDERED: Heparin 5000 UNITS/ML 1 mL VIAL SUBCUT SCH (22:00)
[2021-08-18] MEDS: cefTRIAXone 1 gm/50 mL NS BAG 1 GM/50 ML BAG IVPB SCH (00:21)
[2021-08-18 06:39] LABS: Calcium 8.9 mg/dL (8.6-10.3); Potassium 3.1 mmol/L (3.5-5.0); eGFR CKD-EPI 85.3 (>60)
[2021-08-18] MEDS: Mometasone/Formoter 100/5 MDI INH SCH ×2 (08:38→19:41)
[2021-08-18] MEDS: KCL 20 MEQ/100 ML IVPREMIX 20 MEQ/100 ML BAG IV SCH ×2 (09:23→12:21)
[2021-08-18] MEDS: KCL 20 MEQ/100 ML IVPREMIX 20 MEQ/100 ML BAG ONE ×2 (13:36→17:47)
[2021-08-18] MEDS ORDERED: Midazolam 10 mg/10 ml VIAL 1 mg/ml 10 ml VIAL (10 mg) ONE (14:24)
[2021-08-18] MEDS ORDERED: fentaNYL 100 mcg/2 ml 50 MCG/ML VIAL ONE (14:25)
[2021-08-18 16:22] LABS: Magnesium 1.6 mg/dL (1.9-2.7)
[2021-08-18] MEDS ORDERED: Magnesium Sulfate IV 3 GM in NS 0.9% 100 ml BAG 100 ML IVPB ONE (18:00)
[2021-08-19] MEDS: cefTRIAXone 1 gm/50 mL NS BAG 1 GM/50 ML BAG IVPB SCH (00:36)
[2021-08-19 05:17] LABS: Calcium 8.5 mg/dL (8.6-10.3); Magnesium 2.2 mg/dL (1.9-2.7); Potassium 2.8 mmol/L (3.5-5.0); eGFR CKD-EPI 89.5 (>60)
[2021-08-19] MEDS ORDERED: Potassium Chloride LIQUID 20 MEQ/15 ML LIQUID PO ONE ×2 (07:53→17:00)
[2021-08-19] MEDS: Mometasone/Formoter 100/5 MDI INH SCH (08:25)
[2021-08-19] MEDS ORDERED: Polyethylene Glycol 3350 17 GM PACKET PO SCH (09:00)
[2021-08-19 12:32] VITALS: BP 117/74
== END 2021-08-19 16:03 | disposition home or self-care (01) | DRG 389 ==
LOC: ED 16:52 → MEDTELE 18:50
PROVIDERS: ADMIT Internal Medicine; ATTEND Internal Medicine

== ENCOUNTER 2022-09-11 09:13 | Observation (INO) ==
[2022-09-11 09:43] LABS: ABS Basophils 0.1 10^3/ul (0-0.2); ABS Eosinophils 0.2 10^3/ul (0-0.6); ABS Lymphocytes 0.5 10^3/ul (1.0-4.8); ABS Neutrophils 12.1 10^3/ul (1.5-7.7); Eosinophil % 1.3 %; Hematocrit 38 % (42-52); Hemoglobin 12.3 g/dL (14.0-18.0); Lymphocyte % 3.3 %; Mean Corpuscular HGB Conc 33 g/dL (31-36); Mean Corpuscular Hemoglobin 28 pg (27-31); Mean Corpuscular Volume 86 fL (80-94); Mean Platelet Volume 6.6 fL (7.4-10.4); Platelet Count 359 10^3/uL (150-450); Red Blood Count 4.39 10^6 /uL (4.18-5.48); Red Cell Distribution Width 15 % (10-15); White Blood Count 13.8 10^3/uL (3.5-10.8)
[2022-09-11 10:26] LABS: Albumin 3.9 g/dL (3.2-5.2); Albumin/Globulin Ratio 1.4 (1-3); Calcium 8.8 mg/dL (8.6-10.3); Creatinine, Serum 1.14 mg/dL (0.67-1.17); Globulin 2.7 g/dL (2-4); Total Bilirubin 0.9 mg/dL (0.2-1.0); Total Protein 6.6 g/dL (6.4-8.9); eGFR CKD-EPI 63.4 (>60)
[2022-09-11 10:47] LABS: Venous Bicarbonate HCO3 30.7 mmol/L (24-28)
[2022-09-11 11:09] LABS: High Sensitivity Troponin 1 Hr 14 pg/mL (<20)
[2022-09-11] MEDS ORDERED: Iohexol 350 (CONTRAST) 500 ML MDV IV ONE (11:11)
[2022-09-11] MEDS ORDERED: Magnesium Sulfate IV 3 GM in NS 0.9% 100 ml BAG 100 ML IVPB ONE (13:35)
[2022-09-11] MEDS ORDERED: Calcium Carb (TUMS) 500 mg CHEW TAB PO PRN (14:34)
[2022-09-11] MEDS ORDERED: Enoxaparin 40 MG/0.4 ML SYR SUBCUT SCH (15:00)
[2022-09-11] MEDS: Mometasone/Formoter 100/5 MDI INH SCH (19:56)
[2022-09-12 07:18] LABS: ABS Eosinophils 0.2 10^3/ul (0-0.6); ABS Lymphocytes 0.3 10^3/ul (1.0-4.8); ABS Monocytes 0.9 10^3/ul (0-0.8); ABS Neutrophils 11.1 10^3/ul (1.5-7.7); Eosinophil % 1.5 %; Hematocrit 36 % (42-52); Lymphocyte % 2.6 %; Mean Corpuscular HGB Conc 33 g/dL (31-36); Mean Corpuscular Hemoglobin 28 pg (27-31); Mean Corpuscular Volume 85 fL (80-94); Mean Platelet Volume 6.7 fL (7.4-10.4); Platelet Count 322 10^3/uL (150-450); Red Blood Count 4.21 10^6 /uL (4.18-5.48); Red Cell Distribution Width 15 % (10-15); White Blood Count 12.5 10^3/uL (3.5-10.8)
[2022-09-12 07:33] LABS: Calcium 8.3 mg/dL (8.6-10.3); Creatinine, Serum 0.85 mg/dL (0.67-1.17); Magnesium 2.1 mg/dL (1.9-2.7); Potassium 4.1 mmol/L (3.5-5.0); eGFR CKD-EPI 85.7 (>60)
[2022-09-12] MEDS: Mometasone/Formoter 100/5 MDI INH SCH (07:37)
[2022-09-12 09:36] VITALS: BP 135/81
[2022-09-12] MEDS ORDERED: Cholecalciferol (VIT D3) 1,000 unit TAB PO SCH (12:00)
== END 2022-09-12 10:08 | disposition home or self-care (01) ==
LOC: ED 09:13 → EDHOLD 09:13 → MEDTELE 17:22
PROVIDERS: ADMIT Internal Medicine Hematology & Oncology; ATTEND Internal Medicine Hematology & Oncology

== ENCOUNTER 2024-04-28 09:49 | Observation (INO) ==
[2024-04-28] MEDS: Albuterol/Ipratropium NEB.SOL (2.5/0.5 MG) 3 ML NEB.SOLN INH ONE (10:19)
[2024-04-28 10:23] LABS: ABS Eosinophils 0.2 10^3/uL (0.0-0.5); ABS Lymphocytes 0.4 10^3/uL (1.0-4.8); ABS Monocytes 1.3 10^3/uL (0.0-1.1); ABS Neutrophils 12.1 10^3/uL (1.5-7.6); ABS Nucleated RBC 0.01 10^3/ul; Eosinophil % 1.3 %; Hematocrit 37.3 % (38-53); Hemoglobin 12.5 g/dL (13.2-16.3); Lymphocyte % 3.1 %; Mean Corpuscular Hemoglobin 30.8 pg (27-33); Mean Corpuscular Hgb Conc 33.4 g/dL (31-36); Mean Corpuscular Volume 92.2 fL (80-97); Nucleated Red Blood Cells % 0.1 %/100WBC (0.0-0.8); Platelet Count 507 10^3/uL (150-450); Red Blood Count 4.05 10^6/uL (4.06-5.63); White Blood Count 14.1 10^3/uL (3.6-10.2)
[2024-04-28] MEDS: methylPREDNISolone SOD SUCC 125 mg 2 ML VIAL IV ONE (10:24)
[2024-04-28 10:30] LABS: INR 2.19 (0.85-1.14)
[2024-04-28 10:46] LABS: ALT 13 U/L (7-52); Albumin 3.8 g/dL (3.2-5.2); Albumin/Globulin Ratio 1.3 (1-3); Alkaline Phosphatase 76 U/L (35-149); Anion Gap 9 mmol/L (2-16); Blood Urea Nitrogen 19 mg/dL (6-24); CO2 Carbon Dioxide 28 mmol/L (22-32); Calcium 8.7 mg/dL (8.6-10.3); Chloride 99 mmol/L (101-111); Creatinine, Serum 0.89 mg/dL (0.67-1.17); Globulin 2.9 g/dL (2-4); Glucose 127 mg/dL (70-100); Sodium 136 mmol/L (135-145); Total Bilirubin 0.9 mg/dL (0.2-1.0); Total Protein 6.7 g/dL (6.4-8.9); eGFR CKD-EPI 83.5 (>60)
[2024-04-28 10:49] LABS: High Sens Troponin Baseline 18 pg/mL (<20)
[2024-04-28] MEDS: cefTRIAXone 1 gm/50 mL D5W 1 GM/50 ML BAG IV ONE (11:16)
[2024-04-28] MEDS: Azithromycin 500 mg/250 ml NS 500 MG/250 ML BAG IVPB ONE (11:53)
[2024-04-28 11:59] LABS: High Sensitivity Troponin 1 Hr 20 pg/mL (<20)
[2024-04-28 12:03] LABS: Potassium Redraw 3.9 mmol/L (3.5-5.0)
[2024-04-28] MEDS: Albuterol 2.5mg/3 ml (0.083%) NEB.SOLN INH SCH (15:54)
[2024-04-28] MEDS: BALSALAZIDE DISO 750 MG PO SCH (18:54)
[2024-04-29 05:47] LABS: ABS Lymphocytes 0.3 10^3/uL (1.0-4.8); ABS Monocytes 0.3 10^3/uL (0.0-1.1); ABS Neutrophils 8.2 10^3/uL (1.5-7.6); ABS Nucleated RBC 0.01 10^3/ul; Hematocrit 33.3 % (38-53); Hemoglobin 11.4 g/dL (13.2-16.3); Lymphocyte % 3.8 %; Mean Corpuscular Hemoglobin 31.1 pg (27-33); Mean Corpuscular Hgb Conc 34.2 g/dL (31-36); Mean Platelet Volume 7.1 fL (7.5-11.2); Nucleated Red Blood Cells % 0.1 %/100WBC (0.0-0.8); Platelet Count 476 10^3/uL (150-450); Red Blood Count 3.66 10^6/uL (4.06-5.63); Red Cell Distribution Width 15.2 % (12-17); White Blood Count 8.9 10^3/uL (3.6-10.2)
[2024-04-29 06:00] LABS: Calcium 8.6 mg/dL (8.6-10.3); Creatinine, Serum 0.87 mg/dL (0.67-1.17); Magnesium 1.9 mg/dL (1.9-2.7); Potassium 4.4 mmol/L (3.5-5.0)
[2024-04-29] MEDS: Tiotropium Brom/Olodaterol MDI (ACUTE) INH SCH (08:18)
[2024-04-29] MEDS: Cholecalciferol (VIT D3) 1,000 unit TAB PO SCH (09:36)
[2024-04-29] MEDS: cefTRIAXone 1 gm/50 mL D5W 1 GM/50 ML BAG IV SCH (11:01)
[2024-04-29] MEDS: Azithromycin 500 mg/250 ml NS 500 MG/250 ML BAG IVPB SCH (12:04)
[2024-04-29] MEDS: Albuterol 2.5mg/3 ml (0.083%) NEB.SOLN INH SCH (13:31)
[2024-04-29] MEDS: Fluticasone NASAL SPRAY 50MCG 16 gm SPRAY BTL INTRANASAL SCH (14:26)
[2024-04-29 15:08] VITALS: BP 112/78
== END 2024-04-29 16:20 | disposition home or self-care (01) ==
LOC: ED 09:49 → EDHOLD 09:49 → MEDTELE 19:32
PROVIDERS: ADMIT Internal Medicine; ATTEND Internal Medicine